=== PATIENT | female | born 1970 | race American Indian/Alaskan Native ===

== ENCOUNTER 2016-12-15 21:06 | Emergency (ER) | payer BC ==
--- NOTE | 2016-12-16 02:24 | Emergency Department Report ---
HPI - General Chief Complaint: Extremity Injury, Lower Time Seen by Provider: 12/16/16 02:14 - HPI HPI: This is a 46-year-old female the past medical history of diabetes and hypertension on medication presents to ED complaining of right lower leg pain 2 days. Patient states about 10 days days ago she was walking and clumsily fail any got some abrasions on her knee and lower leg. Patient states she did not go get seen. Patient states about 3 days ago she started to experience some cramping type pain on the back of her right lower leg. She is discharged urgent care earlier and was sent to the ER to be ruled out for DVT. Patient admits mild knee pain from fall 10 days ago. Signed she denies fevers/ chills/nausea/vomiting/shortness of breath/chest pain/dizziness/weakness or any other problems. ED Past Medical Hx - Past Medical History Hx Hypertension: Yes Hx Diabetes: Yes Hx GERD: Yes Additional medical history: sleep apnea, - Surgical History Past Surgical History?: No - Social History Smoking Status: Never Smoker Substance Use Type: None - Medications Home Medications: Home Medications Medication Instructions Recorded Confirmed Last Taken Type Cyclobenzaprine [Flexeril] 10 mg PO TID PRN #20 tablet 12/16/16 Unknown Rx Naproxen [Naprosyn] 500 mg PO BID #30 tablet 12/16/16 Unknown Rx ED Review of Systems ROS: Stated complaint: R LEG PAIN/POSS BLOOD CLOT Other details as noted in HPI Constitutional: denies: chills, fever Eyes: denies: eye pain, eye discharge, vision change ENT: denies: ear pain, throat pain Respiratory: denies: cough, shortness of breath, wheezing Cardiovascular: denies: chest pain, palpitations Endocrine: no symptoms reported Gastrointestinal: denies: abdominal pain, nausea, diarrhea Genitourinary: denies: urgency, dysuria, discharge Musculoskeletal: denies: back pain, joint swelling, arthralgia Skin: denies: rash, lesions Neurological: denies: headache, weakness, numbness, paresthesias, confusion Psychiatric: denies: anxiety, depression Hematological/Lymphatic: denies: easy bleeding, easy bruising Physical Exam - Physical Exam Vital Signs: Vital Signs 12/15/16 21:24 Temperature 98.8 F Pulse Rate 103 H Respiratory 20 Rate Blood Pressure 157/108 O2 Sat by Pulse 100 Oximetry Physical Exam: GENERAL: Alert and oriented x3, no apparent distress, Normal Gait, atraumatic. HEAD: Head is normocephalic and a-traumatic. NECK: Supple. Non edematous, No carotid bruits. No lymphadenopathy or thyromegaly. No C-spine tenderness LUNGS: Symetrical with respiration, No wheezing, no rales or crackles, CTAB. HEART: S1, S2 present, regular rate and rhythm without murmur, no rubs, no gallops. ABDOMEN: No organomegaly was noted,Positive bowel sounds, soft, and non- distended. . Nontender to palpation on all Quadrants, NO CVA tenderness. EXTREMITIES/MUSCULOSKELETAL: No cyanosis, clubbing, rash, lesions or edema. Full ROM bilaterally. UE/LE Pulses 2+ bilaterally. Homans sign positive. Tenderness to palpation of the calf region. Mildly one plus. The right LE and UE 5+ strength bilaterally, straight leg raise negative bilaterally NEUROLOGIC: The patient is cooperative with no focal neurologic deficits. Cranial nerves II through XII are grossly intact. Normal sensation in bilateral upper extremities, No loss of sensation, SKIN: Warm and dry, No lesions, No ulceration or induration present. ED Course Vital Signs 12/15/16 21:24 Temperature 98.8 F Pulse Rate 103 H Respiratory 20 Rate Blood Pressure 157/108 O2 Sat by Pulse 100 Oximetry ED Medical Decision Making - Medical Decision Making 46-year-old female presents to ED to rule out DVT. Discussed with patient the crit discussed need for ultrasound Doppler study to rule out DVT. D-dimer ordered d-dimer mildly elevated. Wells criteria - 2 Discussed case with attending Dr. Salgado who suggested patient should wait to ultrasound Doppler studies returned for the day and gave left of the study of the lower extremity. Discussed findings with patient. Discussed the patient to wait for ultrasound Doppler studies of the right leg. Patient was taking ultrasound and Doppler study was done. Doppler studies of the right lower extremity show no signs of DVT. Discussed this finding patient. Discussed the patient to follow-up with primary care physician Vital signs are normal eyes. Patient is in no acute distress Discussed the patient if any new symptoms or worsening symptoms to return to ED. Critical care attestation.: If time is entered above; I have spent that time in minutes in the direct care of this critically ill patient, excluding procedure time. ED Disposition Clinical Impression: Right calf pain Knee pain, right Qualifiers: Chronicity: acute Qualified Code(s): M25.561 - Pain in right knee Disposition: DISCHARGED TO HOME OR SELFCARE Is pt being admited?: No Does the pt Need Aspirin: No Condition: Stable Instructions: Deep Venous Thrombosis (ED), Knee Pain (ED), Arthralgia (ED), Knee Exercises (GEN) Additional Instructions: Follow-up with primary care physician. If worsening symptoms or new symptoms arise return to ED. Take your medication as prescribed. Prescriptions: Cyclobenzaprine [Flexeril] 10 mg PO TID PRN #20 tablet PRN Reason: Muscle Spasm Naproxen [Naprosyn] 500 mg PO BID #30 tablet Referrals: PRIMARY CARE, [Primary Care Provider] - 3-5 Days [facility] [Outside] - 3-5 Days [facility] [Outside] - 3-5 Days [facility] [Outside] - 3-5 Days Forms: Work/School Release Form(ED) Time of Disposition: 07:02
[2016-12-16] MEDS ORDERED: FLEXERIL PO ONE (02:26)
[2016-12-16] MEDS ORDERED: LOVENOX SUB-Q ONE ×2 (02:26→02:35)
[2016-12-16 07:09] VITALS: BP 152/98
[2016-12-16] MEDS ORDERED: LOVENOX SUB-Q SCH (10:00)
--- NOTE | 2016-12-16 10:05 | XRay Report ---
FINAL REPORT PROCEDURE: XR KNEE 3V RT TECHNIQUE: RIGHT knee radiographs, AP, lateral and oblique views. CPT 51355 HISTORY: pain/fall COMPARISON: No prior studies are available for comparison. FINDINGS: Fracture (s) and/or Dislocation(s): None . Alignment: Normal . Joint space(s): Mild joint effusion. Soft tissues: Normal . Bone mineralization: Normal . Foreign bodies: None . IMPRESSION: No evidence of an acute fracture or dislocation. There is a mild joint effusion..
--- NOTE | 2016-12-17 08:23 | Vascular Lab Report ---
Right Lower Extremity Venous Duplex Study: Reason for Exam: Pain of the right lower extremity. Comments on the Right: All veins visualized are freely compressible without evidence of internal echogenicity. Flow is spontaneous and phasic throughout. No evidence of acute or chronic thrombus is seen in any of the vessels visualized. Comments on the Left: A limited duplex study was done of the proximal veins of the left lower extremity. All veins visualized are freely compressible without evidence of internal echogenicity. Flow is spontaneous and phasic throughout. No evidence of acute or chronic thrombus is seen in any of the vessels visualized. Impression: No evidence of acute or chronic deep venous thrombosis in the right lower extremity.
== END 2016-12-16 07:09 | disposition home or self-care (01) ==
LOC: ED 21:06
DX: M79.661 Pain in right lower leg (principal); M25.561 Pain in right knee; I10 Essential (primary) hypertension; E11.9 Type 2 diabetes mellitus without complications; K21.9 Gastro-esophageal reflux disease without esophagitis
CPT/HCPCS: 36415; 73562; 85379; 93971; 96372; 99284; J1650